=== PATIENT | female | born 1985 | race Caucasian/White ===

== ENCOUNTER 2024-03-19 11:22 | Outpatient (REF) | payer MEDICAID, SELFPAY | END 2024-03-19 11:23 | disposition home or self-care (01) | LOC: LBN 11:22 | PROVIDERS: Visit Provider Nurse Practitioner Family | DX: Q18.1 Preauricular sinus and cyst (principal) | CPT/HCPCS: 87070; 87205 ==

== ENCOUNTER 2025-01-02 10:29 | Emergency (ER) | payer MEDICAID, SELFPAY ==
[2025-01-02 11:10] VITALS: BP 121/78; PULSE 74; RESP 16; TEMP 36.6; O2SAT 98
[2025-01-02 12:07] VITALS: BP 111/63; PULSE 74; RESP 18; O2SAT 98
== END 2025-01-02 12:22 | disposition left against medical advice (07) ==
DX: Z53.21 Procedure and treatment not carried out due to patient leaving prior to being seen by health care provider (principal)

== ENCOUNTER 2025-04-07 20:16 | Emergency (ER) | payer SELFPAY ==
[2025-04-07 20:20] VITALS: BP 159/112; PULSE 96; RESP 20; O2SAT 100
[2025-04-07 20:35] VITALS: TEMP 36.4
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
== END 2025-04-07 21:22 | disposition home or self-care (01) ==
LOC: ER 21:19
PROVIDERS: Emergency Provider Emergency Medicine; PCP Internal Medicine
DX: R68.0 Hypothermia, not associated with low environmental temperature (principal); E16.8 Other specified disorders of pancreatic internal secretion; F17.290 Nicotine dependence, other tobacco product, uncomplicated; X31.XXXA Exposure to excessive natural cold, initial encounter; Y93.16 Activity, rowing, canoeing, kayaking, rafting and tubing; Y92.838 Other recreation area as the place of occurrence of the external cause
CPT/HCPCS: 82962; 99283